=== PATIENT | female | born 1960 ===

== ENCOUNTER 2018-05-27 20:17 | Emergency (ER) | payer MEDICARE, MEDICAID ==
[2018-05-27 20:18] VITALS: BMI 24.7
[2018-05-27] MEDS ORDERED: Sodium Chloride 0.9% 1,000 ML IV ONE ×2 (20:41→22:59)
--- NOTE | 2018-05-27 20:41 | C.PDOC ---
History Of Present Illness Patient brought in via EMS after being found inebriated in her hallway not answering any questions. Unable to obtain further Hx from patient. Time Seen by Provider: 05/27/18 20:39 Chief Complaint (Nursing): Substance Abuse History Per: EMS History/Exam Limitations: intoxication Onset/Duration Of Symptoms: Hrs Current Symptoms Are (Timing): Still Present Suicide/Self Injury Attempted (Context): None Modifying Factor(s): Alcohol Severity: None Pain Scale Rating Of: 0 Recent travel outside of the [place]: No Past Medical History Reviewed: Historical Data, Nursing Documentation, Vital Signs Vital Signs: Last Vital Signs Temp 97.5 F L 05/27/18 20:25 Pulse 86 05/27/18 20:25 Resp 16 05/27/18 20:25 BP 94/63 L 05/27/18 20:25 Pulse Ox 100 05/27/18 20:25 - Medical History PMH: Anxiety, Arthritis, Depression, HTN, Hypercholesterolemia, Kidney Stones, Migraine, Schizophrenia Denies: Chronic Kidney Disease - [facility] Procedures INJECT/INFUSE NEC (10/01/14) Family History: States: No Known Family Hx - Social History Hx Tobacco Use: Yes Hx Alcohol Use: Yes Hx Substance Use: Yes (Marijuana use, on weekly basis.) - Immunization History Hx Tetanus Toxoid Vaccination: No Hx Influenza Vaccination: No Hx Pneumococcal Vaccination: No Review Of Systems Review Of Systems: ROS cannot be obtained secondary to pt's inabilty to answer questions. Physical Exam - Physical Exam Appears: Non-toxic, Other (Strong ETOH on breath, no sign of trauma) Skin: Warm, Dry Head: Normacephalic Oral Mucosa: Moist Neck: Trachea Midline, Supple Chest: Symmetrical, No Tenderness Cardiovascular: Rhythm Regular Respiratory: No Rales, No Rhonchi, No Wheezing Gastrointestinal/Abdominal: Soft, No Tenderness Neurological/Psych: Oriented x3 ED Course And Treatment - Laboratory Results Result Diagrams: 05/27/18 20:55 05/27/18 20:55 O2 Sat by Pulse Oximetry: 100 (Room air) Pulse Ox Interpretation: Normal Progress Note: Blood work and urinalysis ordered. Protonix and IV fluids administered. Reevaluation Time: 05:03 Reassessment Condition: Improved Disposition Counseled Patient/Family Regarding: Studies Performed, Diagnosis, Need For Followup - Disposition Referrals: [facility] [Outside] Disposition: HOME/ ROUTINE Disposition Time: 20:41 Condition: FAIR Instructions: Alcohol Abuse and Alcoholism (DC) Forms: [employer] ([place]) - Clinical Impression Clinical Impression: Alcohol intoxication - Scribe Statement The provider has reviewed the documentation as recorded by the Scriblisa Olivier All medical record entries made by the Scribe were at my direction and personally dictated by me. I have reviewed the chart and agree that the record accurately reflects my personal performance of the history, physical exam, medical decision making, and the department course for this patient. I have also personally directed, reviewed, and agree with the discharge instructions and disposition.
[2018-05-27] MEDS ORDERED: Sodium Chloride 0.9% 1,000 ML ONE (20:54)
[2018-05-27 20:59] LABS: BASO # 0.1 K/uL (0.0-0.2); EOS # 0.1 K/uL (0.0-0.7); EOS % 1.2 % (0.0-4.0); HEMOGLOBIN 11.9 g/dL (11.0-16.0); LYMPH # 2.1 K/uL (1.0-4.3); LYMPH % 34.7 % (20.0-40.0); MEAN CORPUSCULAR HEMOGLOBIN 30.7 pg (27.0-31.0); MONO # 0.4 K/uL (0.0-0.8); MONO % 7.4 % (0.0-10.0); NEUT # 3.4 K/uL (1.8-7.0); NEUT % 55.7 % (50.0-75.0); RBC 3.88 Mil/uL (3.80-5.20); RED CELL DISTRIBUTION WIDTH 16.6 % (11.5-14.5)
[2018-05-27 21:17] LABS: ALB/GLOB RATIO 1.3 (1.0-2.1); ALBUMIN 3.9 g/dL (3.5-5.0); ALT/SGPT 18 U/L (9-52); AST/SGOT 29 U/L (14-36); BLOOD UREA NITROGEN 14 mg/dL (7-17); CALCIUM 8.8 mg/dl (8.6-10.4); GFR NON-AFRICAN AMERICAN > 60
[2018-05-27 21:22] LABS: SQUAMOUS EPITHIAL 1 /hpf (0-5); URINE BACTERIA FEW (<OCC); URINE BILIRUBIN NEGATIVE (NEGATIVE); URINE BLOOD NEGATIVE (NEGATIVE); URINE CLARITY Hazy (Clear); URINE COLOR Yellow (YELLOW); URINE GLUCOSE (UA) NORMAL (Normal); URINE LEUKOCYTE ESTERASE NEG Leu/uL (Negative); URINE PROTEIN NEGATIVE (NEGATIVE); URINE UROBILINOGEN NORMAL mg/dL (0.2-1.0)
[2018-05-27 21:35] LABS: BARBITURATES, UR NEGATIVE (NEGATIVE); BENZODIAZEPINES, UR NEGATIVE (NEGATIVE); OPIATES, UR NEGATIVE (NEGATIVE); PHENCYCLIDINE, UR NEGATIVE (NEGATIVE)
[2018-05-28] MEDS ORDERED: Albuterol-Ipratrop 3 mg / 0.5 (3 ml) UD ONE (05:25)
[2018-05-28 05:30] VITALS: BP 115/67; PULSE 85; RESP 18; TEMP 97.7; O2SAT 97
== END 2018-05-28 06:25 | disposition home or self-care (01) ==
LOC: C.ER 20:17
DX: F10.129 Alcohol abuse with intoxication, unspecified (principal); Y90.6 Blood alcohol level of 120-199 mg/100 ml; I10 Essential (primary) hypertension; E78.00 Pure hypercholesterolemia, unspecified; F41.9 Anxiety disorder, unspecified; F32.9 Major depressive disorder, single episode, unspecified; F17.210 Nicotine dependence, cigarettes, uncomplicated
CPT/HCPCS: 80053; 81001; 82948; 83735; 84100; 85025; 86850; 86900; 96361; 96374; 96375; 99285; C9113; G0480; J1885; J7030

== ENCOUNTER 2018-05-28 11:51 | Observation (INO) | payer MEDICARE, MEDICAID ==
[2018-05-28 12:09] VITALS: BMI 19.5
[2018-05-28 12:30] LABS: BASO # 0.1 K/uL (0.0-0.2); BASO % 0.8 % (0.0-2.0); EOS # 0.1 K/uL (0.0-0.7); EOS % 0.4 % (0.0-4.0); HEMOGLOBIN 12.5 g/dL (11.0-16.0); LYMPH # 1.5 K/uL (1.0-4.3); LYMPH % 12.6 % (20.0-40.0); MEAN CELL VOLUME 94.8 fL (81.0-99.0); MEAN CORPUSCULAR HEMOGLOBIN 31.1 pg (27.0-31.0); MEAN CORPUSCULAR HGB CONC 32.8 g/dL (33.0-37.0); MEAN PLATELET VOLUME 8.1 fL (7.2-11.7); MONO # 0.8 K/uL (0.0-0.8); MONO % 6.8 % (0.0-10.0); NEUT # 9.7 K/uL (1.8-7.0); NEUT % 79.4 % (50.0-75.0); RBC 4.01 Mil/uL (3.80-5.20); RED CELL DISTRIBUTION WIDTH 16.6 % (11.5-14.5)
[2018-05-28 12:32] LABS: WHITE BLOOD COUNT 12.2 K/uL (4.8-10.8)
[2018-05-28 12:42] LABS: INR 1.1; PROTHROMBIN TIME 11.5 SECONDS (9.7-12.2)
--- NOTE | 2018-05-28 12:42 | RAD ---
HISTORY: AMS COMPARISON: Chest x-ray performed 12/29/15 TECHNIQUE: Chest, one view. FINDINGS: LUNGS: No focal consolidation. Please note that chest x-ray has limited sensitivity for the detection of pulmonary masses. PLEURA: No significant pleural effusion identified. No definite pneumothorax . CARDIOVASCULAR: Heart size appears within normal limits. Faint atherosclerotic calcification present. OSSEOUS STRUCTURES: Numerous chronic appearing right rib fracture deformities. VISUALIZED UPPER ABDOMEN: Unremarkable. OTHER FINDINGS: None. IMPRESSION: No focal consolidation. Chronic appearing right rib fracture deformities.
[2018-05-28 12:49] LABS: VENOUS BLOOD GAS PCO2 42 mmHg (40-60); VENOUS BLOOD GAS PO2 40 mm/Hg (30-55)
[2018-05-28 13:06] LABS: B-TYPE NATRIURETIC PEPTIDE 83.7 pg/mL (0-900); CK-MB 4.43 ng/mL (0.0-3.38)
--- NOTE | 2018-05-28 13:15 | CT ---
Date of service: 05/28/2018 PROCEDURE: CT HEAD WITHOUT CONTRAST. HISTORY: AMS COMPARISON: None available. TECHNIQUE: Axial computed tomography images were obtained through the head/brain without intravenous contrast. Radiation dose: Total exam DLP = 1508.24 mGy-cm. This CT exam was performed using one or more of the following dose reduction techniques: Automated exposure control, adjustment of the mA and/or kV according to patient size, and/or use of iterative reconstruction technique. FINDINGS: HEMORRHAGE: No intracranial hemorrhage. BRAIN: No mass effect or edema. Minimal chronic periventricular white matter ischemic change adjacent to the frontal horns of the lateral ventricles. VENTRICLES: Unremarkable. No hydrocephalus. CALVARIUM: Unremarkable. PARANASAL SINUSES: Unremarkable as visualized. No significant inflammatory changes. MASTOID AIR CELLS: Unremarkable as visualized. No inflammatory changes. OTHER FINDINGS: None. IMPRESSION: No intracranial mass, hemorrhage or evidence of acute infarct. Minimal chronic white matter ischemic change.
--- NOTE | 2018-05-28 13:26 | C.PDOC ---
History Of Present Illness Patient BIBA for evaluation of AMS and generalized weakness since yesterday. Patient appears drowsy and is vague about symptoms, states "I don't feel well". Time Seen by Provider: 05/28/18 11:57 Chief Complaint (Nursing): Altered Mental Status History Per: EMS History/Exam Limitations: Intoxication (? under influence of drugs) Onset Of Symptoms: Cannot Confirm Onset Usual Baseline: Alert Oriented Past Medical History Reviewed: Historical Data, Nursing Documentation, Vital Signs Vital Signs: Last Vital Signs Temp 99.1 F 05/28/18 12:01 Pulse 88 05/28/18 12:01 Resp 16 05/28/18 12:01 BP 133/81 05/28/18 12:01 Pulse Ox 100 05/28/18 12:01 - Medical History PMH: Anxiety, Arthritis, Depression, HTN, Hypercholesterolemia, Kidney Stones, Migraine, Chronic Kidney Disease, Schizophrenia - [email or web address] Procedures INJECT/INFUSE NEC (10/01/14) Family History: States: No Known Family Hx - Social History Hx Tobacco Use: Yes Hx Alcohol Use: Yes Hx Substance Use: Yes (Marijuana use, on weekly basis.) - Immunization History Hx Tetanus Toxoid Vaccination: No Hx Influenza Vaccination: No Hx Pneumococcal Vaccination: No Review Of Systems Cardiovascular: Negative for: Chest Pain, Palpitations Respiratory: Negative for: Cough, Shortness of Breath Gastrointestinal: Negative for: Nausea, Vomiting, Abdominal Pain, Diarrhea Neurological: Negative for: Altered Mental Status, Dizziness Physical Exam - Physical Exam Appears: Well, Non-toxic, Other Skin: Warm, Dry, Other (abrasions right zhao (approx 4-5cm)) Head: Atraumatic, Normacephalic Eye(s): bilateral: EOMI, Other (pupils dilated and reactive B/L ) Oral Mucosa: Moist Cardiovascular: Rhythm Regular Respiratory: Normal Breath Sounds, No Rales, No Rhonchi, No Wheezing Gastrointestinal/Abdominal: Normal Exam, Bowel Sounds, Soft, No Tenderness Extremity: Normal ROM, No Tenderness, No Deformity, No Swelling Extremity: Bilateral: Atraumatic Neurological/Psych: Other (drowsy with mildly slurred speech, moving all 4 extremities spontaneously) ED Course And Treatment - Laboratory Results Result Diagrams: 05/28/18 12:26 05/28/18 12:26 ECG: Interpreted By Me, Viewed By Me (NSR 87 bpm, normal axis, no acute ST/T wav e changes) ECG Interpretation: Normal O2 Sat by Pulse Oximetry: 100 (RA) Pulse Ox Interpretation: Normal - Other Rad cxr X-Ray: Viewed By Me, Read By Radiologist Interpretation: Accession No. : [id number]. Patient Name / ID : KAYLYN EUBANKS / [id number]. Exam Date : 05/28/2018 12:29:05 ( Approved ). Study Comment : Sex / Age : F / 57Y. Creator : Willa Hills MD. Dictator : Willa Hills MD. Gaming Floor Supervisor : Psychiatry Resident : Willa Hills MD. Approver2 : Report Date : 05/28/2018 12:38:53. My Comment : . HISTORY: AMS. COMPARISON: Chest x-ray performed 12/29/15. TECHNIQUE: Chest, one view. FINDINGS: LUNGS: No focal consolidation. Please note that chest x- ray has limited sensitivity for the detection of pulmonary masses. PLEURA: No significant pleural effusion identified. No definite pneumothorax . CARDIOVASCULAR: Heart size appears within normal limits. Faint atherosclerotic calcification present. OSSEOUS STRUCTURES: Numerous chronic appearing right rib fracture deformities. VISUALIZED UPPER ABDOMEN: Unremarkable. OTHER FINDINGS: None. IMPRESSION: No focal consolidation. Chronic appearing right rib fracture deformities. - CT Scan/US ct head Other Rad Studies (CT/US): Read By Radiologist, Radiology Report Reviewed CT/US Interpretation: Accession No. : [id number]. Patient Name / ID : KAYLYN EUBANKS / [id number]. Exam Date : 05/28/2018 12:37:54 ( Approved ). Study Comment : Sex / Age : F / 57Y. Creator : Stacie Pride. Dictator : Jose Ramon Chen MD. Gaming Floor Supervisor : Psychiatry Resident : Jose Ramon Chen MD. Approver2 : Report Date : 05/28/2018 12:55:35. My Comment : . Date of service: 05/28/2018. PROCEDURE: CT HEAD WITHOUT CONTRAST. HISTORY: AMS. COMPARISON: None available. TECHNIQUE: Axial computed tomography images were obtained through the head/brain without intravenous contrast. Radiation dose: Total exam DLP = 1508.24 mGy-cm. This CT exam was performed using one or more of the following dose reduction techniques: Automated exposure control, adjustment of the mA and/or kV according to patient size, and/or use of iterative reconstruction technique. FINDINGS: HEMORRHAGE: No intracranial hemorrhage. BRAIN: No mass effect or edema. Minimal chronic periventricular white matter ischemic change adjacent to the frontal horns of the lateral ventricles. VENTRICLES: Unremarkable. No hydrocephalus. CALVARIUM: Unremarkable. PARANASAL SINUSES: Unremarkable as visualized. No significant inflammatory changes. MASTOID AIR CELLS: Unremarkable as visualized. No inflammatory changes. OTHER FINDINGS: None. IMPRESSION: No intracranial mass, hemorrhage or evidence of acute infarct. Minimal chronic white matter ischemic change. Progress Note: Blood work, EK, UA, UDS, CT head ordered and reviewed. As per EMS, patient has h/o alcohol and benzo use - ? under influence at this time. Disposition - Disposition Disposition Time: 13:30 Condition: STABLE Forms: [email or web address] (Citizen Of [place]) - Clinical Impression Clinical Impression: Altered mental state Physician Patient Turnover Patient Signed Over To: Celina Whitfield Handoff Comments: pending labs, UDS
[2018-05-28 13:35] LABS: ALB/GLOB RATIO 1.2 (1.0-2.1); ALBUMIN 4.3 g/dL (3.5-5.0); ALT/SGPT 13 U/L (9-52); AST/SGOT 66 U/L (14-36); BLOOD UREA NITROGEN 12 mg/dL (7-17); GFR NON-AFRICAN AMERICAN > 60
[2018-05-28 14:16] LABS: ACETAMINOPHEN < 10.0 ug/mL (10.0-30.0); SALICYLATE < 1.0 mg/dL 1
--- NOTE | 2018-05-28 14:28 | CP.PCM.HP ---
History of Present Illness - History of Present Illness History of Present Illness: Patient admitted for evaluation of AMS and generalized weakness since yesterday. Patient drowsy and is vague about symptoms, states "I don't feel well". patient has a history of hypertension and depression schizophrenia hyperchole steremia on multiple medications as outpatient. Currently patient is not sure how many pills she took this morning. There is no other previous admission in the medical floor prior to this admission. Patient has history of kidney stones. Present on Admission - Present on Admission Any Indicators Present on Admission: No Review of Systems - Review of Systems Review of Systems: patient is drowsy and unable to give review of system Past Patient History - Infectious Disease Hx of Infectious Diseases: None - Past Medical History & Family History Past Medical History?: Yes - Past Social History Smoking Status: Current Some Days Smoker - CARDIAC Hx Hypercholesterolemia: Yes Hx Hypertension: Yes - PULMONARY Hx Respiratory Disorders: No - NEUROLOGICAL Hx Migraine: Yes - HEENT Hx HEENT Problems: No - RENAL Hx Chronic Kidney Disease: Yes Hx Kidney Stones: Yes - ENDOCRINE/METABOLIC Hx Endocrine Disorders: No - HEMATOLOGICAL/ONCOLOGICAL Hx Blood Disorders: No - INTEGUMENTARY Hx Dermatological Problems: No - MUSCULOSKELETAL/RHEUMATOLOGICAL Hx Arthritis: Yes - GASTROINTESTINAL Hx Gastrointestinal Disorders: No - GENITOURINARY/GYNECOLOGICAL Hx Genitourinary Disorders: No - PSYCHIATRIC Hx Anxiety: Yes Hx Depression: Yes Hx Schizophrenia: Yes Hx Substance Use: Yes (Marijuana use, on weekly basis.) - SURGICAL HISTORY Hx Surgeries: No - ANESTHESIA Hx Anesthesia: No Hx Anesthesia Reactions: No Hx Malignant Hyperthermia: No Meds Allergies/Adverse Reactions: Allergies Allergy/AdvReac Type Severity Reaction Status Date / Time No Known Allergies Allergy Verified 05/28/18 12:02 Physical Exam - Head Exam Head Exam: ATRAUMATIC, NORMAL INSPECTION, NORMOCEPHALIC - Eye Exam Eye Exam: EOMI, Normal appearance, PERRL - ENT Exam ENT Exam: Mucous Membranes Moist, Normal Exam - Neck Exam Neck exam: Positive for: Normal Inspection - Respiratory Exam Respiratory Exam: Clear to Auscultation Bilateral, NORMAL BREATHING PATTERN - Cardiovascular Exam Cardiovascular Exam: REGULAR RHYTHM - GI/Abdominal Exam GI & Abdominal Exam: Normal Bowel Sounds, Soft. absent: Tenderness - Extremities Exam Extremities exam: Positive for: normal inspection. Negative for: calf tenderness - Neurological Exam Neurological exam: Altered, CN II-XII Intact - Psychiatric Exam Psychiatric exam: Flat Affect Results - Vital Signs Recent Vital Signs: Last Vital Signs Temp 99.1 F 05/28/18 12:01 Pulse 87 05/28/18 13:41 Resp 20 05/28/18 13:41 BP 159/88 H 05/28/18 13:41 Pulse Ox 98 05/28/18 13:41 - Labs Result Diagrams: 05/28/18 12:26 05/28/18 12:26 Labs: Laboratory Results - last 24 hr 05/28/18 05/28/18 05/28/18 12:04 12:26 12:26 WBC 12.2 H D RBC 4.01 Hgb 12.5 Hct 38.0 MCV 94.8 MCH 31.1 H MCHC 32.8 L RDW 16.6 H Plt Count 341 MPV 8.1 Neut % (Auto) 79.4 H Lymph % (Auto) 12.6 L [place] % (Auto) 6.8 Eos % (Auto) 0.4 Baso % (Auto) 0.8 Neut # (Auto) 9.7 H Lymph # (Auto) 1.5 [place] # (Auto) 0.8 Eos # (Auto) 0.1 Baso # (Auto) 0.1 PT 11.5 INR 1.1 APTT 29 pO2 VBG pH VBG pCO2 VBG HCO3 VBG Total CO2 VBG O2 Sat (Calc) VBG Base Excess VBG Potassium Glucose Lactate FiO2 Sodium Potassium Chloride Carbon Dioxide Anion Gap BUN Creatinine Est GFR ( Amer) Est GFR (Non-Af Amer) POC Glucose (mg/dL) 76 Random Glucose Calcium Total Bilirubin AST ALT Alkaline Phosphatase Total Creatine Kinase CK-MB (Mass) Troponin I NT-Pro-B Natriuret Pep Total Protein Albumin Globulin Albumin/Globulin Ratio Venous Blood Potassium Salicylates Acetaminophen Alcohol, Quantitative 05/28/18 05/28/18 05/28/18 12:26 12:45 13:59 WBC RBC Hgb Hct MCV MCH MCHC RDW Plt Count MPV Neut % (Auto) Lymph % (Auto) [place] % (Auto) Eos % (Auto) Baso % (Auto) Neut # (Auto) Lymph # (Auto) [place] # (Auto) Eos # (Auto) Baso # (Auto) PT INR APTT pO2 40 VBG pH 7.40 VBG pCO2 42 VBG HCO3 25.1 VBG Total CO2 27.3 VBG O2 Sat (Calc) 76.3 H VBG Base Excess 1.0 VBG Potassium 3.5 L Glucose 76 Lactate 1.3 FiO2 21.0 Sodium 142 143.0 Potassium 4.4 Chloride 109 H 111.0 H Carbon Dioxide 21 L Anion Gap 16 BUN 12 Creatinine 0.4 L Est GFR ( Amer) > 60 Est GFR (Non-Af Amer) > 60 POC Glucose (mg/dL) Random Glucose 81 Calcium 9.0 Total Bilirubin 1.2 AST 66 H D ALT 13 Alkaline Phosphatase 111 Total Creatine Kinase 349 H CK-MB (Mass) 4.43 H Troponin I 0.0150 NT-Pro-B Natriuret Pep 83.7 Total Protein 7.9 Albumin 4.3 Globulin 3.5 Albumin/Globulin Ratio 1.2 Venous Blood Potassium 3.5 L Salicylates < 1.0 Acetaminophen < 10.0 L Alcohol, Quantitative < 10 Assessment & Plan (1) Altered mental state Status: Acute Comment: neuro and septic workup. May need a psychiatric evaluation (2) Psychiatric diagnosis Status: Chronic (3) HTN (hypertension) Status: Chronic (4) Hypercholesteremia Status: Chronic
[2018-05-28 16:00] VITALS: RESP 20
[2018-05-28 20:13] VITALS: O2SAT 96
[2018-05-28 23:34] LABS: SQUAMOUS EPITHIAL 2 /hpf (0-5); URINE BILIRUBIN NEGATIVE (NEGATIVE); URINE BLOOD NEGATIVE (NEGATIVE); URINE CLARITY Clear (Clear); URINE COLOR Yellow (YELLOW); URINE GLUCOSE (UA) NORMAL (Normal); URINE LEUKOCYTE ESTERASE 1+ Leu/uL (Negative); URINE PROTEIN NEGATIVE (NEGATIVE); URINE UROBILINOGEN NORMAL mg/dL (0.2-1.0)
[2018-05-28 23:35] LABS: BARBITURATES, UR NEGATIVE (NEGATIVE); OPIATES, UR NEGATIVE (NEGATIVE); PHENCYCLIDINE, UR NEGATIVE (NEGATIVE)
[2018-05-28 23:38] LABS: BENZODIAZEPINES, UR POSITIVE (NEGATIVE)
[2018-05-28 23:41] LABS: URINE BACTERIA FEW (<OCC)
[2018-05-28 23:58] VITALS: BP 113/75; TEMP 97.3
[2018-05-29] MEDS ORDERED: Pneumococcal 23-Valent Vaccine IM ONE (10:00)
[2018-05-29 10:31] VITALS: PULSE 123
--- NOTE | 2018-05-29 11:21 | PCM.PSYCH ---
Initial Psychiatric Evaluation - Initial Psychiatric Evaluation Type of Admission: Voluntary Legal Status: Capacity Chief Complaint (in patient's own words): I am doing better.' History of Present Illness and Precipitating Events: Pt is a 57 year old female who is single with no children of her own. She lives by herself with frequent visits by her home health aide, counselor, and many others for the past 10 years. She has been on disability for the past 14 years. Pt presents to [facility] for altered mental status and generalized weakness. Today pt was consulted by psychiatry. Pt reports a long history of schizophrenia. She denies feeling suicidal or homicidal ideations. Pt also denies any suicide attempts in the past. Pt states she is constantly anxious, depressed, and paranoid. She states she was diagnosed with depression and anxiety 20 years ago. She lost her 29 years ago which is when she believes all of her symptoms have begun. Her left behind 3 children who she adores. She states she smokes marijuana weekly and 2-3 cigarettes a day. She denies use of alcohol anymore though she did in the past. Pt denies use of other substances including K2, heroin or cocaine. She has been hospitalized for a psychiatric condition 3-6 times in the past and her last hospitalization was 2 years ago. She has had poor sleep for many years but her appetite is intact. Pt denies fevers, seizures, chills or any complaints regarding her health at this time. She denies any SI/HI/AVH. Past medical history: Denies Allergies: Denies? Psychiatric history: Depressive d/o unspecified, general anxiety d/o, schizophrenia Family psychiatric history: Brother and sister hear voices Current Medications: Active Medications Generic Name Dose Route Start Last Admin Trade Name Chava PRN Reason Stop Dose Admin Amlodipine Besylate 10 mg 05/28/18 18:00 05/29/18 09:58 Norvasc PO 10 mg DAILY AISHA Administration Heparin Sodium (Porcine) 5,000 units 05/28/18 22:00 05/29/18 10:00 Heparin SC 5,000 units Q12 AISHA Administration Past Psychiatric History - Past Psychiatric History Previous Treatment History: Inpatient Pertinent Medical Hx (Current Medical&Sleep Prob, Allergies): Allergies Allergy/AdvReac Type Severity Reaction Status Date / Time No Known Allergies Allergy Verified 05/28/18 12:02 Benztropine Mesylate 1 mg PO HS 10/01/14 Olanzapine 20 mg PO BID 10/01/14 amLODIPine [Norvasc] 10 mg PO DAILY 10/01/14 Omeprazole [Prilosec] 20 mg PO DAILY 01/03/16 Losartan [Cozaar] 50 mg PO DAILY 05/29/18 Naproxen 500 mg PO BID 05/29/18 Ophir-3 Fatty Acids/Fish Oil [Fish Oil 1,000 mg Capsule] 1,000 mg PO DAILY 05/29/18 Simvastatin 10 mg PO HS 05/29/18 Review of Systems - Review of Systems All systems: reviewed and no additional remarkable complaints except - Psychiatric Psychiatric: Anxiety, Irritability. absent: Suicidal Ideation Mental Status Examination - Personal Presentation Personal Presentation: Looks stated age - Affect Affect: Constricted - Motor Activity Motor Activity: Calm - Reliability in Providing Information Reliability in Providing Information: Fair - Speech Speech: Organized - Mood Mood: Anxious - Formal Thought Process Formal Thought Process: No Impairment - Obsessions/Compulsions Obsessions: No Compulsions: No - Cognitive Functions Orientation: Person, Place, Situation, Time Sensorium: Alert Attention/Concentration: Attentive Abstract Thinking: [place] Estimate of Intelligence: Below average Judgement: Imparied, as evidence by: Poor judgement, Intact, as evidence by: Insight regarding need for hospitalization - Risk Risk: Diminished functioning - Limitations Limitations: Living alone DSM 5 DX - DSM 5 DSM 5 Diagnosis: Schizophrenia paranoid type continuous - Recommended/Plan of Treatment Treatment Recommendations and Plan of Treatment: Patient is psychiatrically stable and clear for discharge
--- NOTE | 2018-05-29 14:12 | CP.PCM.DIS ---
Provider - Provider Date of Admission: 05/28/18 13:54 Attending physician: Cecy Villegas MD Time Spent in preparation of Discharge (in minutes): 30 Diagnosis - Discharge Diagnosis (1) Altered mental state Status: Acute (2) Psychiatric diagnosis Status: Chronic (3) HTN (hypertension) Status: Chronic (4) Hypercholesteremia Status: Chronic Hospital Course - Lab Results Lab Results: Most Recent Lab Values WBC 12.2 K/uL (4.8-10.8) H D 05/28/18 12:26 RBC 4.01 Mil/uL (3.80-5.20) 05/28/18 12:26 Hgb 12.5 g/dL (11.0-16.0) 05/28/18 12:26 Hct 38.0 % (34.0-47.0) 05/28/18 12:26 MCV 94.8 fL (81.0-99.0) 05/28/18 12:26 MCH 31.1 pg (27.0-31.0) H 05/28/18 12:26 MCHC 32.8 g/dL (33.0-37.0) L 05/28/18 12:26 RDW 16.6 % (11.5-14.5) H 05/28/18 12:26 Plt Count 341 K/uL (130-400) 05/28/18 12:26 MPV 8.1 fL (7.2-11.7) 05/28/18 12:26 Neut % (Auto) 79.4 % (50.0-75.0) H 05/28/18 12:26 Lymph % (Auto) 12.6 % (20.0-40.0) L 05/28/18 12:26 [place] % (Auto) 6.8 % (0.0-10.0) 05/28/18 12:26 Eos % (Auto) 0.4 % (0.0-4.0) 05/28/18 12:26 Baso % (Auto) 0.8 % (0.0-2.0) 05/28/18 12:26 Neut # (Auto) 9.7 K/uL (1.8-7.0) H 05/28/18 12:26 Lymph # (Auto) 1.5 K/uL (1.0-4.3) 05/28/18 12:26 [place] # (Auto) 0.8 K/uL (0.0-0.8) 05/28/18 12:26 Eos # (Auto) 0.1 K/uL (0.0-0.7) 05/28/18 12:26 Baso # (Auto) 0.1 K/uL (0.0-0.2) 05/28/18 12: PT 11.5 SECONDS (9.7-12.2) 05/28/18 12: INR 1.1 05/28/18 12: APTT 29 SECONDS (21-34) 05/28/18 12:26 pO2 40 mm/Hg (30-55) 05/28/18 12:45 VBG pH 7.40 (7.32-7.43) 05/28/18 12:45 VBG pCO2 42 mmHg (40-60) 05/28/18 12:45 VBG HCO3 25.1 mmol/L 05/28/18 12:45 VBG Total CO2 27.3 mmol/L (22-28) 05/28/18 12:45 VBG O2 Sat (Calc) 76.3 % (40-65) H 05/28/18 12:45 VBG Base Excess 1.0 mmol/L (0.0-2.0) 05/28/18 12:45 VBG Potassium 3.5 mmol/L (3.6-5.2) L 05/28/18 12:45 Sodium 143.0 mmol/l (132-148) 05/28/18 12:45 Chloride 111.0 mmol/L (98-107) H 05/28/18 12:45 Glucose 76 mg/dl (65-105) 05/28/18 12:45 Lactate 1.3 mmol/L (0.7-2.1) 05/28/18 12:45 FiO2 21.0 % 05/28/18 12:45 Sodium 142 mmol/L (132-148) 05/28/18 12:26 Potassium 4.4 mmol/L (3.6-5.2) 05/28/18 12:26 Chloride 109 mmol/L (98-107) H 05/28/18 12:26 Carbon Dioxide 21 mmol/L (22-30) L 05/28/18 12:26 Anion Gap 16 (10-20) 05/28/18 12:26 BUN 12 mg/dL (7-17) 05/28/18 12:26 Creatinine 0.4 mg/dL (0.7-1.2) L 05/28/18 12:26 Est GFR ( Amer) > 60 05/28/18 12:26 Est GFR (Non-Af Amer) > 60 05/28/18 12:26 POC Glucose (mg/dL) 89 mg/dL (65-110) 05/28/18 21:09 Random Glucose 81 mg/dL (65-105) 05/28/18 12:26 Calcium 9.0 mg/dl (8.6-10.4) 05/28/18 12:26 Total Bilirubin 1.2 mg/dL (0.2-1.3) 05/28/18 12:26 AST 66 U/L (14-36) H D 05/28/18 12:26 ALT 13 U/L (9-52) 05/28/18 12:26 Alkaline Phosphatase 111 U/L (38-126) 05/28/18 12:26 Total Creatine Kinase 349 U/L (30-135) H 05/28/18 12:26 CK-MB (Mass) 4.43 ng/mL (0.0-3.38) H 05/28/18 12:26 Troponin I 0.0150 ng/mL (0.00-0.120) 05/28/18 12:26 NT-Pro-B Natriuret Pep 83.7 pg/mL (0-900) 05/28/18 12:26 Total Protein 7.9 g/dL (6.3-8.3) 05/28/18 12:26 Albumin 4.3 g/dL (3.5-5.0) 05/28/18 12:26 Globulin 3.5 gm/dL (2.2-3.9) 05/28/18 12:26 Albumin/Globulin Ratio 1.2 (1.0-2.1) 05/28/18 12:26 Venous Blood Potassium 3.5 mmol/L (3.6-5.2) L 05/28/18 12:45 Urine Color Yellow (YELLOW) 05/28/18 22:57 Urine Clarity Clear (Clear) 05/28/18 22:57 Urine pH 6.0 (5.0-8.0) 05/28/18 22:57 Ur Specific [place] 1.016 (1.003-1.030) 05/28/18 22:57 Urine Protein Negative mg/dL (NEGATIVE) 05/28/18 22:57 Urine Glucose (UA) Normal mg/dL (Normal) 05/28/18 22:57 Urine Ketones Negative mg/dL (NEGATIVE) 05/28/18 22:57 Urine Blood Negative (NEGATIVE) 05/28/18 22:57 Urine Nitrate Positive (NEGATIVE) H 05/28/18 22:57 Urine Bilirubin Negative (NEGATIVE) 05/28/18 22:57 Urine Urobilinogen Normal mg/dL (0.2-1.0) 05/28/18 22:57 Ur Leukocyte Esterase 1+ Rivas/uL (Negative) H 05/28/18 22:57 Urine WBC (Auto) 48 /hpf (0-5) H 05/28/18 22:57 Urine RBC (Auto) 2 /hpf (0-3) 05/28/18 22:57 Ur Squamous Epith Cells 2 /hpf (0-5) 05/28/18 22:57 Urine Bacteria Few (<OCC) H 05/28/18 22:57 Salicylates < 1.0 mg/dL 1 05/28/18 13:59 Urine Opiates Screen Negative (NEGATIVE) 05/28/18 22:57 Urine Methadone Screen Negative (NEGATIVE) 05/28/18 22:57 Acetaminophen < 10.0 ug/mL (10.0-30.0) L 05/28/18 13:59 Ur Barbiturates Screen Negative (NEGATIVE) 05/28/18 22:57 Ur Phencyclidine Scrn Negative (NEGATIVE) 05/28/18 22:57 Ur Amphetamines Screen Negative (NEGATIVE) 05/28/18 22:57 U Benzodiazepines Scrn Positive (NEGATIVE) 05/28/18 22:57 U Oth Cocaine Metabols Negative (NEGATIVE) 05/28/18 22:57 U Cannabinoids Screen Positive (NEGATIVE) H 05/28/18 22:57 Alcohol, Quantitative < 10 mg/dl (0-10) 05/28/18 12:26 - Hospital Course Hospital Course: Patient admitted for evaluation of AMS and generalized weakness since yesterday. Patient drowsy and is vague about symptoms, states "I don't feel well". patient has a history of hypertension and depression schizophrenia hypercholesteremia on multiple medications as outpatient. Currently patient is not sure how many pills she took this morning. There is no other previous admission in the medical floor prior to this admission. Patient has history of kidney stone Following day patient signed out AGAINST MEDICAL ADVICE Patient was cleared by psychiatrist concerning her mental status, that she can make her own decision No neuro or cardiac workup was done Patient was advised to follow-up with her private doctor or to my office in 2 days. Discharge Exam - Head Exam Head Exam: ATRAUMATIC, NORMAL INSPECTION, NORMOCEPHALIC Discharge Plan - Follow Up Plan Condition: STABLE Disposition: HOME/ ROUTINE Instructions: Heart Healthy Diet, High Blood Pressure (DC), High Cholesterol (DC) Referrals: Cecy Villegas MD [Staff Provider] -
--- NOTE | 2018-05-29 19:41 | CARD ---
APPROVED REPORT Date of service: 05/28/2018 EKG Measurement Heart [id number] <Conclusion> Normal sinus rhythm Normal ECG
== END 2018-05-29 13:50 | disposition left against medical advice (07) ==
LOC: C.ER 11:51 → C.5S 13:54
PROVIDERS: ADMIT Internal Medicine Cardiovascular Disease; ATTEND Internal Medicine Cardiovascular Disease
DX: R41.82 Altered mental status, unspecified (principal); E78.00 Pure hypercholesterolemia, unspecified; I12.9 Hypertensive chronic kidney disease with stage 1 through stage 4 chronic kidney disease, or unspecified chronic kidney disease; N20.0 Calculus of kidney; F20.0 Paranoid schizophrenia; N18.9 Chronic kidney disease, unspecified; Z87.442 Personal history of urinary calculi; Z87.891 Personal history of nicotine dependence; Z23 Encounter for immunization
CPT/HCPCS: 70450; 71045; 80053; 81001; 82550; 82553; 82803; 82948; 83880; 84484; 85025; 85610; 85730; 90732; 93005; 99285; G0009; G0378; G0480; J1644